=== PATIENT | female | born 1950 | race Caucasian/White ===

== ENCOUNTER 2019-07-01 12:08 | Observation (INO) | payer SELFPAY ==
[2019-07-01] MEDS ORDERED: SODIUM CHLORIDE 1,000 ML IV STA (12:25)
--- NOTE | 2019-07-01 12:52 | PDOC ---
History of Present Illness - General Chief Complaint: Syncope/Near Syncope Stated Complaint: Altered Mental Status Time Seen by Provider: 07/01/19 12:19 History Source: Patient Exam Limitations: No Limitations - History of Present Illness Initial Comments: Michelle Fernando is a 68 yo F w a pmh of multiple vasovagal syncopal events, bladder incontinence, mood disturbances, and constipation who presents to the [facility] ER via EMS bc she had a syncopal episode this morning 1 hour prior to arrival. The patient went to bed last night at 9:30 pm and felt completely normal. She took a sleeping pill and woke up this morning at 10 am, which per her is a totally normal sleep cycle for the patient. The patient states she had to wake up 5 times overnight to urinate which is abnormal for her, usually she only wakes up once or twice. Patient woke up this morning feeling well, walked downstairs to have waffles with her family, and then as she was eating the waffles she suddenly became confused, unresponsive, pale, diaphoretic , vomitted - NBNB, and passed out for around 2 or 3 minutes. EMS arrived within 5 minutes and the patient was starting to wake up. They said her glucose in the field was 135. The and daughter both witnessed the entire event and said the patient was sitting down throughout the entire process and did not experience head or other trauma. As the patient was getting onto the ambulance she woke up and was her normal self. Here in the ER the patient feels she is 100 % and has no complaints. She states she has passed out many other times in her life when she has given blood and in other circumstances. She states today felt very similar to her prior syncopal episodes. Her and daughter who are at bedside states they believe she has decreased her fluid intake for the past 2 days. Patient denies having experienced chest pain, SOB, difficulty breathing, headache, neck pain, numbness, tingling, weakness, dysuria, hesiatancy, fevers, or infections. PCP: In [place] PSH: Hip replacement Social Hx: Drinks a glass of wine with dinner. Denies smoking or other toxic habits Allergies: NKA, NKDA Past History - Past Medical History Allergies/Adverse Reactions: Allergies Allergy/AdvReac Type Severity Reaction Status Date / Time No Known Allergies Allergy Verified 09/02/19 12:16 COPD: No GI Disorders: Yes (over active bladder) - Suicide/Smoking/Psychosocial Hx Smoking History: Former smoker Have you smoked in the past 12 months: No Information on smoking cessation initiated: No Hx Alcohol Use: No Drug/Substance Use Hx: No Review of Systems - Review of Systems Able to Perform ROS?: Yes Comments:: CONSTITUTIONAL: Present: diaphoresis Absent: fever, chills, generalized weakness, malaise, loss of appetite HEENT: Absent: rhinorrhea, nasal congestion, throat pain, throat swelling, difficulty swallowing, mouth swelling, ear pain, eye pain, visual Changes CARDIOVASCULAR: Present: syncope, lightheadedness Absent: chest pain, palpitations, irregular heart rate, peripheral edema RESPIRATORY: Absent: cough, shortness of breath, dyspnea with exertion, orthopnea, wheezing, stridor, hemoptysis GASTROINTESTINAL: Present: Nausea, vomiting Absent: abdominal pain, abdominal distension, diarrhea, constipation, melena, hematochezia GENITOURINARY: Present: Frequency, urgency Absent: dysuria, hesitancy, hematuria, flank pain, genital pain MUSCULOSKELETAL: Absent: myalgia, arthralgia, joint swelling SKIN: Present: Pallor Absent: rash, itching HEMATOLOGIC/IMMUNOLOGIC: Absent: easy bleeding, easy bruising, lymphadenopathy, frequent infections ENDOCRINE: Absent: unexplained weight gain, unexplained weight loss, heat intolerance, cold intolerance NEUROLOGIC: Absent: headache, focal weakness or paresthesias, dizziness, unsteady gait, seizure, mental status changes, bladder or bowel incontinence PSYCHIATRIC: Present: Depression years ago Absent: anxiety, suicidal or homicidal ideation, hallucinations. *Physical Exam - Vital Signs Last Vital Signs Temp Pulse Resp BP Pulse Ox 98.3 F 76 18 135/71 100 07/01/19 12:11 07/01/19 12:11 07/01/19 12:11 07/01/19 12:11 07/01/19 12:11 - Physical Exam Comments: GENERAL: Well developed, well nourished. Awake and alert. No acute distress. HEENT: Normocephalic, atraumatic. PERRLA, EOMI. No conjunctival pallor. Sclera are non- icteric. NECK: Supple. Full ROM. No JVD. No thyromegaly. No lymphadenopathy. CARDIOVASCULAR: Regular rate and rhythm. No murmurs, rubs, or gallops. Distal pulses are 2+ and symmetric. PULMONARY: No evidence of respiratory distress. Lungs clear to auscultation bilaterally. No wheezing, rales or rhonchi. ABDOMINAL: Soft. Non-tender. Non-distended. No rebound or guarding. No organomegaly. Normoactive bowel sounds. MUSCULOSKELETAL Normal range of motion at all joints. No bony deformities or tenderness. No CVA tenderness. EXTREMITIES: No cyanosis. No clubbing. No edema. No calf tenderness. SKIN: Warm and dry. Normal capillary refill. No rashes. No jaundice. NEUROLOGICAL: Alert, awake, appropriate. Cranial nerves 2-12 intact. No deficits to light touch in face, upper extremities and lower extremities. No motor deficits in the in face, upper extremities and lower extremities. Normal speech. Gait is normal without ataxia. PSYCHIATRIC: Cooperative. Good eye contact. Appropriate mood and affect. Heart Score/ECG Review - ECG Intrepretation Rhythm: Regular Rhythm - [place]: Normal - P and PA Prominent R with upright T in V1 (true posterior AL): No Delta Wave(s) Present: No WPW: No - QRS Poor R Wave Progression: No Q Wave Present: No - ST and T Early Repolarization: No Non Specific ST-T Wave changes: Yes Flattened T Waves: Yes Prolonged Q-T Interval: No - ECG Impressions Normal ECG: No Non-specific ST Elevation: Yes Bradycardia: No Torsades nato Pointes: No WPW: No ED Treatment Course - LABORATORY CBC & Chemistry Diagram: 07/01/19 12:36 07/01/19 12:36 - RADIOLOGY Radiology Studies Ordered: Category Date Time Status CHEST X-RAY PORTABLE* [RAD] Stat Radiology 07/01/19 12:26 Ordered Radiograph Interpretation: CXR: Portable chest: Chest pain Single view of the chest reveals clear lungs, normal mediastinum and sharp angles. The soft tissues are intact. Degenerative spine and shoulder changes are noted. There may be calcification in the left shoulder joint. Impression: No acute chest pathology. Degenerative changes. Medical Decision Making - Medical Decision Making Michelle Fernando is a 68 yo F w a pmh of multiple vasovagal syncopal events, bladder incontinence, mood disturbances, and constipation who presents to the [facility] ER via EMS bc she had a syncopal episode this morning 1 hour prior to arrival. The patient went to bed last night at 9:30 pm and felt completely normal. She took a sleeping pill and woke up this morning at 10 am, which per her is a totally normal sleep cycle for the patient. The patient states she had to wake up 5 times overnight to urinate which is abnormal for her, usually she only wakes up once or twice. Patient woke up this morning feeling well, walked downstairs to have waffles with her family, and then as she was eating the waffles she suddenly became confused, unresponsive, pale, diaphoretic , vomitted - NBNB, and passed out for around 2 or 3 minutes. EMS arrived within 5 minutes and the patient was starting to wake up. They said her glucose in the field was 135. The and daughter both witnessed the entire event and said the patient was sitting down throughout the entire process and did not experience head or other trauma. As the patient was getting onto the ambulance she woke up and was her normal self. Here in the ER the patient feels she is 100 % and has no complaints. She states she has passed out many other times in her life when she has given blood and in other circumstances. She states today felt very similar to her prior syncopal episodes. Her and daughter who are at bedside states they believe she has decreased her fluid intake for the past 2 days. Patient denies having experienced chest pain, SOB, difficulty breathing, headache, neck pain, numbness, tingling, weakness, dysuria, hesiatancy, fevers, or infections. Vital Signs Temp Pulse Resp BP Pulse Ox 98.3 F 76 18 135/71 100 07/01/19 12:11 07/01/19 12:11 07/01/19 12:11 07/01/19 12:11 07/01/19 12:11 DDx IBNLT: ACS/AL, Arrhythmia - brugada, long QT, ARVD, HOCM, WPW, Wellens, electrolyte/metabolic disturbance, dehydration, vasovagal event, UTI/pylo Plan: Labs, urine, ekg, cxr, Cards consult, re-assess, probable admission to tele obs EKG: NS rate of 77, narrow complexes, normal axis, no hypertrophy, T wave flattening in aVL, TWI's in V1 and V2, Coved STconvex downgoing ST segment in V1 and also less so in V2 concerning for possible type 1 brugada Labs: Unremarkable. Trop x1 normal. Urine: Normal CXR: No acute chest pathology. Degenerative changes. Cards Consult: Called Dr. Shell's office who says Dr. Petit is construction site manager and will give us a call back. Consult: Dr. Petit agrees with our current management and recommends Tele Obs admission. Re-assessment: Patient feels well and has been asymptomatic since arrival to the ED Disposition: Admission to Tele Obs *DC/Admit/Observation/Transfer Diagnosis at time of Disposition: Syncope and collapse Arrhythmia Qualifiers: Arrhythmia type: unspecified cardiac arrhythmia Qualified Code(s): I49.9 - Cardiac arrhythmia, unspecified - Discharge Dispostion Condition at time of disposition: Stable Decision to Admit order: Yes - Referrals - Patient Instructions - Post Discharge Activity
[2019-07-01 12:57] LABS: BASO % 0.6 % (0-2.0); EOS % 3.1 % (0-4.5); HEMATOCRIT 35.4 % (32.4-45.2); HEMOGLOBIN 11.7 GM/dL (10.7-15.3); LYMPH % 16.9 % (8-40); MCH 30.8 pg (25.7-33.7); MEAN CELL VOLUME 93.3 fl (80-96); MEAN PLT VOLUME 8.4 fl (7.5-11.1); MONO % 14.3 % (3.8-10.2); NEUT % 65.1 % (42.8-82.8); PLATELET COUNT 188 K/MM3 (134-434); RDW 13.4 % (11.6-15.6); WHITE BLOOD COUNT 5.1 K/mm3 (4.0-10.0)
[2019-07-01 13:08] LABS: INR 1.06 (0.83-1.09); PROTHROMBIN TIME (PATIENT) 12.5 SEC (9.7-13.0)
[2019-07-01 13:17] LABS: ALBUMIN 3.3 g/dl (3.4-5.0); BILIRUBIN,TOTAL 0.3 mg/dL (0.2-1); BLOOD UREA NITROGEN 15.5 mg/dL (7-18); CALCIUM 8.6 mg/dL (8.5-10.1); CREATININE 0.7 mg/dL (0.55-1.3); MAGNESIUM 2.3 mg/dL (1.8-2.4); POTASSIUM 4.1 mmol/L (3.5-5.1)
--- NOTE | 2019-07-01 13:29 | PDOC ---
Attending Attestation - Resident Resident Name: Jeremie Mueller - ED Attending Attestation I have performed the following: I have examined & evaluated the patient, The case was reviewed & discussed with the resident, I agree w/resident's findings & plan, Exceptions are as noted - HPI HPI: 07/01/19 13:30 68 F with no significant PMH presents to ED with syncope. Pt states that she was at breakfast when she became pale, confused, diaphoretic, and lost consciousness. Pt was unresponsive for several minutes before waking up and returning to baseline. Pt denies any CP/SOB. Denies palpitations. She states that she has had several similar episodes in the past, but the last episode was about 8 years ago. She was evaluated by a doctor at that time and was told everything was normal. Pt currently has no complaints. Family witnessed the episode and states she was seated the entire time. No fall or head trauma. - Physicial Exam PE: 07/01/19 13:32 "GENERAL: Awake, alert, and fully oriented, in no acute distress. HEAD: No signs of trauma EYES: PERRLA, EOMI, sclera anicteric, conjunctiva clear ENT: Auricles normal inspection, hearing grossly normal, nares patent, oropharynx clear without exudates. Moist mucosa NECK: Nontender, no stepoffs, Normal ROM, supple, no lymphadenopathy, JVD, or masses LUNGS: Breath sounds equal, clear to auscultation bilaterally. No wheezes, and no crackles HEART: Regular rate and rhythm, normal S1 and S2, no murmurs, rubs or gallops ABDOMEN: Soft, nontender, normoactive bowel sounds. No guarding, no rebound. No masses EXTREMITIES: Normal range of motion, no edema. No clubbing or cyanosis. No cords, erythema, or tenderness NEUROLOGICAL: Cranial nerves II through XII intact. 5/5 strength and sensation in all extremities, Normal speech, normal gait, normal cerebellar function SKIN: Warm, Dry, normal turgor, no rashes or lesions noted. - Medical Decision Making 07/01/19 13:32 68 F with syncopal episode. EKG with concerning signs for brugada (cove-like ST elevations in V1, V2). Pt with no chest pain to suggest ACS. - Labs, trop - Cards consult 07/01/19 13:41 Labs wnl Discussed with Dr. Petit pt's abnormal EKG and possibility of Brugada syndrome. Dr. Petit recommends tele obs admission, will evaluate pt.
[2019-07-01 13:54] LABS: PH,URINE 6.5 (5.0-8.0); URINE APPEARANCE CLEAR; URINE BILIRUBIN NEGATIVE (NEGATIVE); URINE COLOR YELLOW; URINE GLUCOSE (UA) NEGATIVE (NEGATIVE); URINE KETONE NEGATIVE (NEGATIVE); URINE LEUK ESTERASE NEGATIVE (NEGATIVE); URINE NITRITE NEGATIVE (NEGATIVE); URINE PROTEIN NEGATIVE (NEGATIVE); URINE UROBILINOGEN 0.2 mg/dL (0.2-1.0)
--- NOTE | 2019-07-01 16:01 | HP ---
CHIEF COMPLAINT: Syncope PCP: Pt is , PCP in [place] HISTORY OF PRESENT ILLNESS: Pt is a 68 y/o F with PMH overactive bladder and constipation and multiple syncople episodes who presents to ED with complaint of fainting spell. Pt was sitting at home and suddenly began to feel dizzy with the room spinning. She does not recall what happened after that, but family was with her (also present at bedside) and confirmed that pt vomited nbnb food contents before passing out for several minutes. EMS was called and pt woke prior to their arrival. Pt has had numerous similar prior episodes (most recently 8 years ago, also on a trip to [place]) and has seen her doctor about it in the past. She was told nothing was wrong. Several other family members have similar episodes of spontaneous syncope including the patient's daughter and grandson who have seen their doctors and been told they are fine. No other complaints. Denies CP, SOB, leg swelling, headache, chills, diarrhea, sick contacts. ER course was notable for: (1) EKG with RBBB and ST elevation in V1 (2) (3) Recent Travel: PAST MEDICAL HISTORY: overactive bladder, chronic constipation, multiple syncople episodes PAST SURGICAL HISTORY: Social History: Smoking:denies Alcohol:denies Drugs: denies Family History: syncope Allergies No Known Allergies Allergy (Verified 07/01/19 12:16) HOME MEDICATIONS: Home Medications Medication Instructions Recorded Lactulose 10 gm PO DAILY 07/01/19 Oxybutynin [Oxytrol For Women] 1 each TD DAILY 07/01/19 REVIEW OF SYSTEMS CONSTITUTIONAL: Absent: fever, chills, diaphoresis, generalized weakness, malaise, loss of appetite, weight change HEENT: Absent: rhinorrhea, nasal congestion, throat pain, throat swelling, difficulty swallowing, mouth swelling, ear pain, eye pain, visual changes CARDIOVASCULAR: syncope, Absent: chest pain, palpitations, irregular heart rate, lightheadedness, peripheral edema RESPIRATORY: Absent: cough, shortness of breath, dyspnea with exertion, orthopnea, wheezing, stridor, hemoptysis GASTROINTESTINAL: Absent: abdominal pain, abdominal distension, nausea, vomiting, diarrhea, constipation, melena, hematochezia GENITOURINARY: Absent: dysuria, frequency, urgency, hesitancy, hematuria, flank pain, genital pain MUSCULOSKELETAL: Absent: myalgia, arthralgia, joint swelling, back pain, neck pain SKIN: Absent: rash, itching, pallor HEMATOLOGIC/IMMUNOLOGIC: Absent: easy bleeding, easy bruising, lymphadenopathy, frequent infections ENDOCRINE: Absent: unexplained weight gain, unexplained weight loss, heat intolerance, cold intolerance NEUROLOGIC: Absent: headache, focal weakness or paresthesias, dizziness, unsteady gait, seizure, mental status changes, bladder or bowel incontinence PSYCHIATRIC: Absent: anxiety, depression, suicidal or homicidal ideation, hallucinations. PHYSICAL EXAMINATION Vital Signs - 24 hr 07/01/19 12:11 Temperature 98.3 F Pulse Rate 76 Respiratory 18 Rate Blood Pressure 135/71 O2 Sat by Pulse 100 Oximetry (%) Gen: AAOx3, NAD HEENT: NCAT, EOMI Neck: supple, no jvd, trachea central Cardio: rrr, normal s1s2, no mrg Pulm: cta b/l Abd: soft, nontender, nondistended Ext: no edema, 2+ pulses Laboratory Results - last 24 hr 07/01/19 07/01/19 07/01/19 12:36 12:36 12:36 WBC 5.1 RBC 3.80 Hgb 11.7 Hct 35.4 MCV 93.3 MCH 30.8 MCHC 33.0 RDW 13.4 Plt Count 188 MPV 8.4 Absolute Neuts (auto) 3.3 Neutrophils % 65.1 Lymphocytes % 16.9 Monocytes % 14.3 H Eosinophils % 3.1 Basophils % 0.6 Nucleated RBC % 0 PT with INR 12.50 INR 1.06 Sodium 140 Potassium 4.1 Chloride 106 Carbon Dioxide 30 Anion Gap 4 L BUN 15.5 Creatinine 0.7 Est GFR (CKD-EPI)AfAm 102.46 Est GFR (CKD-EPI)NonAf 88.40 Random Glucose 113 H Calcium 8.6 Magnesium 2.3 Total Bilirubin 0.3 AST 17 ALT 25 Alkaline Phosphatase 99 Troponin I Total Protein 6.0 L Albumin 3.3 L Urine Color Urine Appearance Urine pH Ur Specific [place] Urine Protein Urine Glucose (UA) Urine Ketones Urine Blood Urine Nitrite Urine Bilirubin Urine Urobilinogen Ur Leukocyte Esterase 07/01/19 07/01/19 12:36 13:14 WBC RBC Hgb Hct MCV MCH MCHC RDW Plt Count MPV Absolute Neuts (auto) Neutrophils % Lymphocytes % Monocytes % Eosinophils % Basophils % Nucleated RBC % PT with INR INR Sodium Potassium Chloride Carbon Dioxide Anion Gap BUN Creatinine Est GFR (CKD-EPI)AfAm Est GFR (CKD-EPI)NonAf Random Glucose Calcium Magnesium Total Bilirubin AST ALT Alkaline Phosphatase Troponin I < 0.02 Total Protein Albumin Urine Color Yellow Urine Appearance Clear Urine pH 6.5 Ur Specific [place] 1.007 L Urine Protein Negative Urine Glucose (UA) Negative Urine Ketones Negative Urine Blood Negative Urine Nitrite Negative Urine Bilirubin Negative Urine Urobilinogen 0.2 Ur Leukocyte Esterase Negative ASSESSMENT/PLAN: This is a pleasant 68 y/o F with PMH significant for overactive bladder, chronic constipation, and multiple syncople episodes who presented to ED with syncope. #Syncope -No suggestion from history of orthostasis -spontaneous, without exertion -EKG with RBBB and ST elev in V1 -EKG and family history raise suspicion for Brugada syndrome -Cardio consult -Tele/Obs #Overactive bladder -oxybutynin #Chronic constipation -Lactulose Visit type - Emergency Visit Emergency Visit: Yes ED Registration Date: 07/01/19 Care time: The patient presented to the Emergency Department on the above date and was hospitalized for further evaluation of their emergent condition. - New Patient This patient is new to me today: Yes Date on this admission: 07/01/19 - Critical Care Critical Care patient: No ATTENDING PHYSICIAN STATEMENT I saw and evaluated the patient. I reviewed the resident's note and discussed the case with the resident. I agree with the resident's findings and plan as documented. SUBJECTIVE: OBJECTIVE: ASSESSMENT AND PLAN:
[2019-07-01] MEDS ORDERED: HEPARIN NA (PORCINE) 5,000 UNITS/ML 1ML VIAL ONE ×2 (16:04→22:16)
[2019-07-01] MEDS: HEPARIN NA (PORCINE) 5,000 UNITS/ML 1ML VIAL SQ SCH ×2 (16:07→22:19)
--- NOTE | 2019-07-01 16:23 | PN ---
Teaching Attending Note Name of Resident: Reuben Daugherty ATTENDING PHYSICIAN STATEMENT I saw and evaluated the patient. I reviewed the resident's note and discussed the case with the resident. I agree with the resident's findings and plan as documented with exceptions below. SUBJECTIVE: 68 yof with PMhx of overactive bladder, visiting from [place], was sitting when had sudden onset of dizziness, spinning sensation. Next thing she remembers was being with EMS. Per family who witnessed the event, patient vomited once, followed by LOC while sitting. No chest pain, palpitations, dyspnea, vision or speech changes, urinary or bowel incontinence, fall, head trauma, post episode confusion were noted. Similar episode 8 years ago and prior to the same as well. Denies any history suggestive of poor oral intake, prolonged standing positional change, diarrhea, vomiting. Has had Holter monitor for 24 hours in the past with no concerns. Also reports multiple family members with similar episodes with reportedly unremarkable work up. 12 point ROS done, neg except above. OBJECTIVE: Vital Signs Period Temp Pulse Resp BP Sys/Santos Pulse Ox Last 24 Hr 98.3 F 76 18 135/71 100 Intake & Output 06/28/19 06/29/19 06/30/19 07/01/19 23:59 23:59 23:59 23:59 Weight 140 lb GENERAL: Awake, alert, and fully oriented, in no acute distress. HEAD: Normal with no signs of trauma. EYES: Pupils equal, round and reactive to light, extraocular movements intact, sclera anicteric, conjunctiva clear. No lid lag. EARS, NOSE, THROAT: Ears normal, nares patent, oropharynx clear without exudates. Moist mucous membranes. NECK: Normal range of motion, supple without lymphadenopathy, JVD, or masses. No carotid bruit appreciated LUNGS: Breath sounds equal, clear to auscultation bilaterally. No wheezes, and no crackles. No accessory muscle use. HEART: Regular rate and rhythm, normal S1 and S2 without murmur, rub or gallop. ABDOMEN: Soft, nontender, not distended, normoactive bowel sounds, no guarding, no rebound, no masses. No hepatomegaly or splenomegaly. MUSCULOSKELETAL: Normal range of motion at all joints. No bony deformities or tenderness. No CVA tenderness. UPPER EXTREMITIES: 2+ pulses, warm, well-perfused. No cyanosis. No clubbing. No peripheral edema. LOWER EXTREMITIES: 2+ pulses, warm, well-perfused. No calf tenderness. No peripheral edema. NEUROLOGICAL: AAOx3, power 5/5, sensation intact to light touch, facial symmetry, EOMI, PERRL, Cranial nerves II-XII intact. Normal speech. Gait not observed PSYCHIATRIC: Cooperative. Good eye contact. Appropriate mood and affect. SKIN: Warm, dry, normal turgor, no rashes or lesions noted, normal capillary refill. Home Medications Medication Instructions Recorded Lactulose 10 gm PO DAILY 07/01/19 Oxybutynin [Oxytrol For Women] 1 each TD DAILY 07/01/19 Active Medications Heparin Sodium (Porcine) (Heparin -) 5,000 unit SQ TID DELTA Last Admin: 07/01/19 16:07 Dose: 5,000 unit Lactulose (Cephulac (Oral Use)) 10 gm PO DAILY [facility] Non-Formulary Medication (Oxybutynin [Oxytrol For Women]) 1 each TD DAILY [facility] Laboratory Results - last 24 hr 07/01/19 07/01/19 07/01/19 12:36 12:36 12:36 WBC 5.1 RBC 3.80 Hgb 11.7 Hct 35.4 MCV 93.3 MCH 30.8 MCHC 33.0 RDW 13.4 Plt Count 188 MPV 8.4 Absolute Neuts (auto) 3.3 Neutrophils % 65.1 Lymphocytes % 16.9 Monocytes % 14.3 H Eosinophils % 3.1 Basophils % 0.6 Nucleated RBC % 0 PT with INR 12.50 INR 1.06 Sodium 140 Potassium 4.1 Chloride 106 Carbon Dioxide 30 Anion Gap 4 L BUN 15.5 Creatinine 0.7 Est GFR (CKD-EPI)AfAm 102.46 Est GFR (CKD-EPI)NonAf 88.40 Random Glucose 113 H Calcium 8.6 Magnesium 2.3 Total Bilirubin 0.3 AST 17 ALT 25 Alkaline Phosphatase 99 Troponin I Total Protein 6.0 L Albumin 3.3 L Urine Color Urine Appearance Urine pH Ur Specific [place] Urine Protein Urine Glucose (UA) Urine Ketones Urine Blood Urine Nitrite Urine Bilirubin Urine Urobilinogen Ur Leukocyte Esterase 07/01/19 07/01/19 12:36 13:14 WBC RBC Hgb Hct MCV MCH MCHC RDW Plt Count MPV Absolute Neuts (auto) Neutrophils % Lymphocytes % Monocytes % Eosinophils % Basophils % Nucleated RBC % PT with INR INR Sodium Potassium Chloride Carbon Dioxide Anion Gap BUN Creatinine Est GFR (CKD-EPI)AfAm Est GFR (CKD-EPI)NonAf Random Glucose Calcium Magnesium Total Bilirubin AST ALT Alkaline Phosphatase Troponin I < 0.02 Total Protein Albumin Urine Color Yellow Urine Appearance Clear Urine pH 6.5 Ur Specific [place] 1.007 L Urine Protein Negative Urine Glucose (UA) Negative Urine Ketones Negative Urine Blood Negative Urine Nitrite Negative Urine Bilirubin Negative Urine Urobilinogen 0.2 Ur Leukocyte Esterase Negative CXR results and images reviewed, no acute process EKG NSR, J point elevation V1-v2 ASSESSMENT AND PLAN: 68 yof with PMhx of recurrent episodes of syncope, comes with syncope, -Syncope, r/o Brugada syndrome, arrhythmia, description not suggestive of vasovagal event/hypovolumia or neurology etiology -Overactive bladder Plan: Telemetry Cardiology input 2D echo/Carotid duplex. [id number] Dispo pending clinical course and need for additional work up. Discussed with patient in detail, all questions answered. total admit time 55 min.
[2019-07-02] MEDS ORDERED: MELATONIN 1 MG TABLET PO ONE (03:07)
[2019-07-02 03:15] VITALS: BMI 26.0
[2019-07-02 07:01] LABS: HEMATOCRIT 35.8 % (32.4-45.2); MCH 30.8 pg (25.7-33.7); MCHC 33.4 g/dl (32.0-36.0); MEAN CELL VOLUME 92.3 fl (80-96); MEAN PLT VOLUME 8.9 fl (7.5-11.1); PLATELET COUNT 175 K/MM3 (134-434); RBC 3.88 M/mm3 (3.60-5.2); RDW 13.3 % (11.6-15.6); WHITE BLOOD COUNT 5.3 K/mm3 (4.0-10.0)
[2019-07-02] MEDS: HEPARIN NA (PORCINE) 5,000 UNITS/ML 1ML VIAL SQ SCH ×3 (07:13→21:46)
[2019-07-02 07:32] LABS: ANION GAP 5 MMOL/L (8-16); BLOOD UREA NITROGEN 12.2 mg/dL (7-18); CALCIUM 8.6 mg/dL (8.5-10.1); CHLORIDE 108 mmol/L (98-107); CO2 30 mmol/L (21-32); CREATININE 0.6 mg/dL (0.55-1.3); GLUCOSE,RANDOM 86 mg/dL (74-106); MAGNESIUM 2.1 mg/dL (1.8-2.4); PHOSPHOROUS 3.1 mg/dL (2.5-4.9); POTASSIUM 3.5 mmol/L (3.5-5.1); SODIUM 143 mmol/L (136-145)
[2019-07-02] MEDS ORDERED: OXYBUTYNIN TD SCH (10:00)
--- NOTE | 2019-07-02 11:41 | PN ---
Teaching Attending Note Name of Resident: Reuben Daugherty ATTENDING PHYSICIAN STATEMENT I saw and evaluated the patient. I reviewed the resident's note and discussed the case with the resident. I agree with the resident's findings and plan as documented with exceptions below. SUBJECTIVE: Patient seen and examined. Had an episode of chest pressure earlier today, now resolved. OBJECTIVE: Vital Signs Period Temp Pulse Resp BP Sys/Santos Pulse Ox Last 24 Hr 97.8 F-98.4 F 76-90 17-20 135-170/65-77 96-100 Intake & Output 06/29/19 06/30/19 07/01/19 07/02/19 23:59 23:59 23:59 23:59 Intake Total 120 Balance 120 Weight 140 lb 147 lb 3.2 oz General: sitting in bed in no acute distress Neck; Soft, supple, no JVD Chest: CTAB, no rales or wheezing Abdomen:soft, NT, ND extremities: no edema Home Medications Medication Instructions Recorded Lactulose 10 gm PO DAILY 07/01/19 Oxybutynin [Oxytrol For Women] 1 each TD DAILY 07/01/19 Active Medications Heparin Sodium (Porcine) (Heparin -) 5,000 unit SQ TID DELTA Last Admin: 07/02/19 07:13 Dose: 5,000 unit Lactulose (Cephulac (Oral Use)) 10 gm PO DAILY [facility] Non-Formulary Medication (Oxybutynin [Oxytrol For Women]) 1 each TD DAILY [facility] Laboratory Results - last 24 hr 07/01/19 07/01/19 07/01/19 12:36 12:36 12:36 WBC 5.1 RBC 3.80 Hgb 11.7 Hct 35.4 MCV 93.3 MCH 30.8 MCHC 33.0 RDW 13.4 Plt Count 188 MPV 8.4 Absolute Neuts (auto) 3.3 Neutrophils % 65.1 Lymphocytes % 16.9 Monocytes % 14.3 H Eosinophils % 3.1 Basophils % 0.6 Nucleated RBC % 0 PT with INR 12.50 INR 1.06 Sodium 140 Potassium 4.1 Chloride 106 Carbon Dioxide 30 Anion Gap 4 L BUN 15.5 Creatinine 0.7 Est GFR (CKD-EPI)AfAm 102.46 Est GFR (CKD-EPI)NonAf 88.40 Random Glucose 113 H Calcium 8.6 Phosphorus Magnesium 2.3 Total Bilirubin 0.3 AST 17 ALT 25 Alkaline Phosphatase 99 Troponin I Total Protein 6.0 L Albumin 3.3 L TSH Free T4 Urine Color Urine Appearance Urine pH Ur Specific [place] Urine Protein Urine Glucose (UA) Urine Ketones Urine Blood Urine Nitrite Urine Bilirubin Urine Urobilinogen Ur Leukocyte Esterase 07/01/19 07/01/19 07/02/19 12:36 13:14 05:15 WBC 5.3 RBC 3.88 Hgb 12.0 Hct 35.8 MCV 92.3 MCH 30.8 MCHC 33.4 RDW 13.3 Plt Count 175 MPV 8.9 Absolute Neuts (auto) Neutrophils % Lymphocytes % Monocytes % Eosinophils % Basophils % Nucleated RBC % PT with INR INR Sodium Potassium Chloride Carbon Dioxide Anion Gap BUN Creatinine Est GFR (CKD-EPI)AfAm Est GFR (CKD-EPI)NonAf Random Glucose Calcium Phosphorus Magnesium Total Bilirubin AST ALT Alkaline Phosphatase Troponin I < 0.02 Total Protein Albumin TSH Free T4 Urine Color Yellow Urine Appearance Clear Urine pH 6.5 Ur Specific [place] 1.007 L Urine Protein Negative Urine Glucose (UA) Negative Urine Ketones Negative Urine Blood Negative Urine Nitrite Negative Urine Bilirubin Negative Urine Urobilinogen 0.2 Ur Leukocyte Esterase Negative 07/02/19 05:15 WBC RBC Hgb Hct MCV MCH MCHC RDW Plt Count MPV Absolute Neuts (auto) Neutrophils % Lymphocytes % Monocytes % Eosinophils % Basophils % Nucleated RBC % PT with INR INR Sodium 143 Potassium 3.5 Chloride 108 H Carbon Dioxide 30 Anion Gap 5 L BUN 12.2 Creatinine 0.6 Est GFR (CKD-EPI)AfAm 107.79 Est GFR (CKD-EPI)NonAf 93.00 Random Glucose 86 Calcium 8.6 Phosphorus 3.1 Magnesium 2.1 Total Bilirubin AST ALT Alkaline Phosphatase Troponin I < 0.02 Total Protein Albumin TSH 5.89 H Free T4 0.93 Urine Color Urine Appearance Urine pH Ur Specific [place] Urine Protein Urine Glucose (UA) Urine Ketones Urine Blood Urine Nitrite Urine Bilirubin Urine Urobilinogen Ur Leukocyte Esterase Microbiology 07/01/19 13:14 Urine - Urine Clean Catch Urine Culture - Final NO GROWTH OBTAINED telemetry: no events carotid duplex results noted ASSESSMENT AND PLAN: 68 yof with PMhx of recurrent episodes of syncope, comes with syncope, -Syncope, r/o Brugada syndrome, arrhythmia, description not suggestive of vasovagal event/hypovolumia or neurology etiology -Chest pain, ?from elevated BP, r/o underlying CAD -large plaque at left common carotid bifurcation/origin of external carotid artery -?subclinical hypothyroidism -Overactive bladder Plan: telemetry with no events. Tn neg x 2 Cardiology input. Follow up 2d Echo. Episode of chest pressure this AM (no events on tele) and h/o intermittent chest pain. Could be from elevated BP. Check stress test. Suspect undiagnosed HTN. Anti-hypertensive choice pending above work up. Carotid duplex noted, check CTA head/neck, vascular surgery input. TSH noted, Recommend repeat thyroid function in 1-2 weeks outpatient. DVTPPx Dispo pending above work up and clinical course. Dc in 24 hours if w/u neg and no new concerns Discussed with patient in detail, all questions answered.
--- NOTE | 2019-07-02 12:46 | EKG ---
Test Reason : Blood Pressure : / mmHG Vent. Rate : 077 BPM Atrial Rate : 077 BPM P-R Int : 152 ms QRS Dur : 086 ms QT Int : 394 ms P-R-T Axes : 057 057 071 degrees QTc Int : 445 ms NORMAL SINUS RHYTHM NONSPECIFIC ST ABNORMALITY ABNORMAL ECG NO PREVIOUS ECGS AVAILABLE Confirmed by Isaiah Chu MD ([id number]) on 07/02/2019 12:46:34 PM Referred By: Confirmed By:Isaiah Chu MD
--- NOTE | 2019-07-02 14:03 | ECHO ---
Name: RUTH LEMOS Exam:Adult Echocardiogram Study Date: 07/02/2019 10:27 AM Age: 68 yrs Reason For Study: assess lv function Height: 63 in Weight: 140 lb BSA: 1.7 m2 MMode/2D Measurements & Calculations IVSd: 0.90 cm Ao root diam: 2.3 cm LVIDd: 4.0 cm LA dimension: 2.6 cm LVIDs: 2.8 cm LVPWd: 0.91 cm LVPWs: 1.4 cm EDV(Teich): 68.4 ml ESV(Teich): 28.8 ml LVOT diam: 1.9 cm RV S Saman: 13.7 cm/sec Doppler Measurements & Calculations MV E max saman: 70.3 cm/sec Ao V2 max: 129.4 cm/sec MV A max saman: 101.4 cm/sec Ao max P.7 mmHg MV E/A: 0.69 Ao V2 mean: 94.5 cm/sec MV dec time: 0.23 sec Ao mean P.9 mmHg Ao V2 VTI: 27.9 cm MARCI(I,D): 2.3 cm2 MARCI(V,D): 2.4 cm2 LV V1 max P.0 mmHg SV(LVOT): 64.6 ml LV V1 mean P.7 mmHg LV V1 max: 112.0 cm/sec LV V1 mean: 78.7 cm/sec LV V1 VTI: 23.3 cm TR max saman: 264.7 cm/sec PA V2 max: 131.9 cm/sec TR max P.0 mmHg PA max P.7 mmHg Med Peak E' Saman: 6.6 cm/sec Med E/e': 10.6 Lat Peak E' Saman: 7.7 cm/sec Lat E/e': 9.1 Procedure A two-dimensional transthoracic echocardiogram with color flow and Doppler was performed. The patient was in normal sinus rhythm during the exam. Left Ventricle The left ventricular size, thickness and function are normal. Ejection Fraction = 60%. Grade I diasto lic dysfunction, (abnormal relaxation pattern). The left ventricular wall motion is normal. Right Ventricle The right ventricle is normal in size and function. Atria Normal left and right atrial size and function. Mitral Valve The mitral valve is grossly normal. There is trace mitral regurgitation. Tricuspid Valve The tricuspid valve is not well visualized, but is grossly normal. There is mild tricuspid regurgitat ion. Right ventricular systolic pressure is normal. Aortic Valve The aortic valve is trileaflet. No hemodynamically significant valvular aortic stenosis. Pulmonic Valve Trace pulmonic valvular regurgitation. Great Vessels The aortic root is normal size. Pericardium/Pleura There is no pericardial effusion. Interpretation Summary The left ventricular size, thickness and function are normal Normal left and right atrial size and function. There is trace mitral regurgitation. There is mild tricuspid regurgitation. No hemodynamically significant valvular aortic stenosis. Right ventricular systolic pressure is normal. Grade I diastolic dysfunction, (abnormal relaxation pattern). MD Geovani Escobedo 07/02/2019 02:02 PM
--- NOTE | 2019-07-02 14:31 | CONSULT ---
- Consultation REQUESTING PROVIDER: CONSULT REQUEST: We have been asked to surgically evaluate this patient for carotid plaque. PCP:Jay Jay Ding MD HISTORY OF PRESENT ILLNESS: Michelle Fernando is a 68 yo F w a pmh of multiple vasovagal syncopal events, bladder incontinence, mood disturbances, and constipation who presents to the [facility] ER via EMS bc she had a syncopal episode yesterday. Patient states she initially woke up feeling well but soon after breakfast she began to feel like she was going to pass out. She suddenly became confused, unresponsive, pale, diaphoretic, vomited once-and passed out. EMS arrived within 5 minutes and the patient was starting to wake up. The and daughter both witnessed the entire event and said the patient was sitting down throughout the entire process and did not experience head or other trauma. She arrived in the ED with no complaints. She states she has passed out many other times in her life when she has given blood and in other circumstances. She states today felt very similar to her prior syncopal episodes. Her and daughter who are at bedside states they believe she has decreased her fluid intake for the past 2 days. Patient denies having experienced chest pain, SOB, difficulty breathing, headache, neck pain, numbness, tingling, weakness, dysuria, hesiatancy, fevers, or infections. PCP: In [place] Social Hx: Drinks a glass of wine with dinner. Denies smoking or other toxic habits Allergies: NKA, NKDA PMHx:, mood disorder overactive bladder PSHx: Hip replacement Home Medications Medication Instructions Recorded Lactulose 10 gm PO DAILY 07/01/19 Oxybutynin [Oxytrol For Women] 1 each TD DAILY 07/01/19 Allergies Allergy/AdvReac Type Severity Reaction Status Date / Time No Known Allergies Allergy Verified 07/01/19 12:16 CONSTITUTIONAL: Present: + diaphoresis (associated with episode) Absent: fever, chills, generalized weakness, malaise, loss of appetite HEENT: Absent: rhinorrhea, nasal congestion, throat pain, throat swelling, visual Changes CARDIOVASCULAR: Present: syncope, lightheadedness Absent: chest pain, palpitations, peripheral edema RESPIRATORY: Absent: cough, shortness of breath, dyspnea with exertion, GASTROINTESTINAL: Present: Nausea, vomiting Absent: abdominal pain, abdominal distension, diarrhea, + constipation GENITOURINARY: Present: + Frequency, urgency Absent: dysuria, hesitancy, hematuria, MUSCULOSKELETAL: Absent: myalgia, arthralgia, joint swelling SKIN: Present: Pallor Absent: rash, itching HEMATOLOGIC/IMMUNOLOGIC: Absent: easy bleeding, easy bruising, lymphadenopathy, frequent infections ENDOCRINE: Absent: unexplained weight gain, unexplained weight loss, heat intolerance, cold intolerance NEUROLOGIC: Absent: headache, focal weakness or paresthesias, dizziness, unsteady gait, seizure, mental status changes, bladder or bowel incontinence PSYCHIATRIC: Present: +Depression years ago Absent: anxiety, suicidal or homicidal ideation, hallucinations. *Physical Exam GENERAL: Well developed, well nourished. Awake and alert. No acute distress. HEENT: Normocephalic, atraumatic. Sclera are non-icteric. NECK: Supple. Full ROM. No JVD. No thyromegaly. No lymphadenopathy, no bruit heard over b/l carotids. PULMONARY: No evidence of respiratory distress. Lungs clear to auscultation bilaterally. No wheezing, rales or rhonchi. MUSCULOSKELETAL moving all extremities without limitation EXTREMITIES: No cyanosis. No clubbing. No edema. No calf tenderness. SKIN: Warm and dry. Normal capillary refill. No rashes. No jaundice. NEUROLOGICAL: Alert, awake, appropriate. Cranial nerves 2-12 intact. No deficits to light touch in face, upper extremities and lower extremities. No motor deficits in the in face, upper extremities and lower extremities. Normal speech. PSYCHIATRIC: Cooperative. Good eye contact. Appropriate mood and affect. Vital Signs Temperature 98 F 07/02/19 09:00 Pulse Rate 80 07/02/19 09:00 Respiratory Rate 18 07/02/19 09:35 Blood Pressure 146/75 07/02/19 09:00 O2 Sat by Pulse Oximetry (%) 98 07/02/19 09:35 Lab Results WBC 5.3 K/mm3 (4.0-10.0) 07/02/19 05:15 RBC 3.88 M/mm3 (3.60-5.2) 07/02/19 05:15 Hgb 12.0 GM/dL (10.7-15.3) 07/02/19 05:15 Hct 35.8 % (32.4-45.2) 07/02/19 05:15 MCV 92.3 fl (80-96) 07/02/19 05:15 MCHC 33.4 g/dl (32.0-36.0) 07/02/19 05:15 RDW 13.3 % (11.6-15.6) 07/02/19 05:15 Plt Count 175 K/MM3 (134-434) 07/02/19 05:15 Sodium 143 mmol/L (136-145) 07/02/19 05:15 Potassium 3.5 mmol/L (3.5-5.1) 07/02/19 05:15 Chloride 108 mmol/L (98-107) H 07/02/19 05:15 Carbon Dioxide 30 mmol/L (21-32) 07/02/19 05:15 Anion Gap 5 MMOL/L (8-16) L 07/02/19 05:15 BUN 12.2 mg/dL (7-18) 07/02/19 05:15 Creatinine 0.6 mg/dL (0.55-1.3) 07/02/19 05:15 Random Glucose 86 mg/dL (74-106) 07/02/19 05:15 Calcium 8.6 mg/dL (8.5-10.1) 07/02/19 05:15 INR 1.06 (0.83-1.09) 07/01/19 12:36 Neck ultrasound minimal intimal thickening of right common carotid bifurcation without evidence of hemodynamically significant stenosis. Larger plaque at left common carotid bifurcation/origin of external carotid @ 8x5.5 without evidence of hemodynamically significant stenosis. Problem List - Problems (1) Syncope and collapse Assessment/Plan: 68 yo with incidental finding of neck plaque without evidence of hemodynamically significant stenosis, in patient with known episodes of vasovagual incidents. No evidence for vascular intervention. 1) continued medical work up for syncope. 2) OOB as tolerated with assist 3) d/c planning 4) re-consult vascular surgery PRN Evaluation and plan discussed with Dr Ramos Code(s): R55 - SYNCOPE AND COLLAPSE
--- NOTE | 2019-07-02 14:34 | PN ---
Physical Exam: SUBJECTIVE: Patient seen and examined at bedside. No acute events overnight. Tele reviewed. OBJECTIVE: Vital Signs Period Temp Pulse Resp BP Sys/Santos Pulse Ox Last 24 Hr 97.8 F-98.4 F 79-90 17-20 140-170/65-77 96-99 Gen: AAOx3, NAD HEENT: NCAT, EOMI Neck: supple, no jvd, trachea central Cardio: rrr, normal s1s2, no mrg Pulm: cta b/l Abd: soft, nontender, nondistended Ext: no edema, 2+ pulses Laboratory Results - last 24 hr 07/02/19 07/02/19 05:15 05:15 WBC 5.3 RBC 3.88 Hgb 12.0 Hct 35.8 MCV 92.3 MCH 30.8 MCHC 33.4 RDW 13.3 Plt Count 175 MPV 8.9 Sodium 143 Potassium 3.5 Chloride 108 H Carbon Dioxide 30 Anion Gap 5 L BUN 12.2 Creatinine 0.6 Est GFR (CKD-EPI)AfAm 107.79 Est GFR (CKD-EPI)NonAf 93.00 Random Glucose 86 Calcium 8.6 Phosphorus 3.1 Magnesium 2.1 Troponin I < 0.02 TSH 5.89 H Free T4 0.93 Active Medications Generic Name Dose Route Start Last Admin Trade Name Freq PRN Reason Stop Dose Admin Heparin Sodium (Porcine) 5,000 unit 07/01/19 15:45 07/02/19 07:13 Heparin - SQ 5,000 unit TID DELTA Administration Lactulose 10 gm 07/02/19 10:00 Cephulac (Oral Use) PO DAILY [facility] Non-Formulary Medication 1 each 07/02/19 10:00 Oxybutynin [Oxytrol For Women] TD DAILY [facility] ASSESSMENT/PLAN: This is a pleasant 68 y/o F with PMH significant for overactive bladder, chronic constipation, and multiple syncople episodes who presented to ED with syncope. #Syncope -No suggestion from history of orthostasis -spontaneous, without exertion -EKG with RBBB and ST elev in V1 -EKG and family history raise suspicion for Brugada syndrome -Echo unremarkable: normal LV function, grade I diastolic dysfunction -Cardio consult -Tele/Obs #Overactive bladder -oxybutynin #Chronic constipation -Lactulose Visit type - Emergency Visit Emergency Visit: No - New Patient This patient is new to me today: No - Critical Care Critical Care patient: No ATTENDING PHYSICIAN STATEMENT I saw and evaluated the patient. I reviewed the resident's note and discussed the case with the resident. I agree with the resident's findings and plan as documented. SUBJECTIVE: OBJECTIVE: ASSESSMENT AND PLAN:
--- NOTE | 2019-07-02 14:51 | PN ---
Progress Note (short form) - Note Progress Note: Vascular Surgery Carotid doppler study reviewed. No elevated velocities. Just plaque in arteries that are not flow limiting. Normal study. CTA of neck done as well. will await official read. Hernandez Ramos DO
[2019-07-02] MEDS: LACTULOSE 20 GM/30 ML UDC (FOR ORAL USE ONLY) PO SCH (15:47)
--- NOTE | 2019-07-02 17:16 | CON.CARD ---
Consult Consult Specialty:: Cardiology Referred by:: Hospitalist Medicine Reason for Consultation:: Syncope - History of Present Illness Chief Complaint: Syncope History of Present Illness: 68 yof with PMhx of overactive bladder, visiting from [place], presented for syncopal episode after eating preceded by typical prodromal sxs of near syncope , flushing, diaphoresis. nausea followed by emesis, noted to be bradycardic, she denies chest pain, palpitations, dyspnea. ECG shows coved ST elevations V1. Telemetry shows no events and she remains asymptomatic since admission. - History Source History Provided By: Patient Limitations to Obtaining History: No Limitations - Alcohol/Substance Use Hx Alcohol Use: No - Smoking History Smoking history: Former smoker Have you smoked in the past 12 months: No Home Medications - Allergies Allergies/Adverse Reactions: Allergies Allergy/AdvReac Type Severity Reaction Status Date / Time No Known Allergies Allergy Verified 07/01/19 12:16 - Home Medications Home Medications: Ambulatory Orders Lactulose 10 gm PO DAILY 07/01/19 Oxybutynin [Oxytrol For Women] 1 each TD DAILY 07/01/19 Review of Systems - Review of Systems Constitutional: reports: Diaphoresis Gastrointestinal: reports: Nausea, Vomiting Neurological: reports: Dizziness, Syncope Vital Signs: Vital Signs Temperature 97.8 F 07/02/19 14:00 Pulse Rate 73 07/02/19 14:00 Respiratory Rate 18 07/02/19 09:35 Blood Pressure 148/84 07/02/19 14:00 O2 Sat by Pulse Oximetry (%) 98 07/02/19 09:35 Constitutional: Yes: No Distress, Calm Neck: Yes: Supple Respiratory: Yes: Regular, CTA Bilaterally Gastrointestinal: Yes: Normal Bowel Sounds, Soft Cardiovascular: Yes: Regular Rate and Rhythm JVD: No Carotid Bruit: No Heart Sounds: Yes: S1, S2 Edema: No - Other Data Labs, Other Data: CBC, BMP 07/02/19 05:15 07/02/19 05:15 INR, PTT INR 1.06 (0.83-1.09) 07/01/19 12:36 Troponin, BNP 07/02/19 05:15 Troponin I < 0.02 Troponin, BNP 07/02/19 05:15 Troponin I < 0.02 NSR @ [address] changes does not meet Brugada syndrome criteria involving leads V1-V3 Echo: Report Reviewed Imaging - Results Chest X-ray: Report Reviewed Problem List - Problems (1) Chest pain Code(s): R07.9 - CHEST PAIN, UNSPECIFIED Qualifiers: Chest pain type: unspecified Qualified Code(s): R07.9 - Chest pain, unspecified (2) Syncope and collapse Code(s): R55 - SYNCOPE AND COLLAPSE Assessment/Plan 07/02/2019 ETT Myoview: [address] depressions inferolateral leads resolving with recovery, no ischemia, LVEF 58% 07/02/2019 Echo: Normal LV and RV size and fxn, mild TR, tr MR, grade I diastolic dysfunction 07/02/2019 Neck CTA: Bilateral nonobstructive plaque common carotid 1. Syncope with typical prodromal symptoms c/w vasovagal etiology 2. Nonobstructive carotid plaque 3. Chest pain ruled out for MS and ischemia P:1. Counselled on abortive maneuvers once prodromal sxs have been experienced, instructions to remain well-hydrated 2. Studies reviewed with patient and family 3. ECG pattern not consistent with Brugada syndrome 4. Patient may be d/barb from CV-standpoint, thank you for consultative opportunity
[2019-07-02] MEDS ORDERED: MELATONIN 5 MG TABLETS PO ONE (21:30)
[2019-07-03] MEDS: HEPARIN NA (PORCINE) 5,000 UNITS/ML 1ML VIAL SQ SCH (06:53)
[2019-07-03 08:06] LABS: HEMATOCRIT 37.5 % (32.4-45.2); HEMOGLOBIN 12.4 GM/dL (10.7-15.3); MCH 30.7 pg (25.7-33.7); MCHC 33.2 g/dl (32.0-36.0); MEAN CELL VOLUME 92.7 fl (80-96); MEAN PLT VOLUME 8.9 fl (7.5-11.1); PLATELET COUNT 182 K/MM3 (134-434); RBC 4.05 M/mm3 (3.60-5.2); RDW 13.6 % (11.6-15.6); WHITE BLOOD COUNT 5.4 K/mm3 (4.0-10.0)
[2019-07-03 08:25] VITALS: PULSE 75; TEMP 98
[2019-07-03 08:26] LABS: BLOOD UREA NITROGEN 10.3 mg/dL (7-18); CALCIUM 8.9 mg/dL (8.5-10.1); CREATININE 0.5 mg/dL (0.55-1.3); POTASSIUM 3.6 mmol/L (3.5-5.1)
--- NOTE | 2019-07-03 08:32 | PN ---
Teaching Attending Note Name of Resident: Reuben Daugherty ATTENDING PHYSICIAN STATEMENT I saw and evaluated the patient. I reviewed the resident's note and discussed the case with the resident. I agree with the resident's findings and plan as documented. Seen and examined; please see resident note for additional historical information. No complaints overnight, seen by CV who cleared for DC. CTA reviewed; nonobstructing plaques. Orthostatics pending prior to DC. Echo with Grade I diastolic dysfunction with trace MR and mild TR. No issues on telemetry. Reviewed admitting EKG. 10 sys ROS done and negative aside HPI VS, labs, imaging reviewed NAD, AAO, resting in med NC AT EOMI PERRLA RRR s1/2; very slight systolic murmur Lungs CTAB, w/ sym exp NT ND +BS CN2-12 wnl, no fnd Normal mood, appropriate behavior ASSESSMENT AND PLAN: Patient presents with syncope; no Brugada syndrome or pattern noted but concern of coved findings with ST-seg in V1 noted. Did have some sinus bradycardia with a positive chronotropic response that is not noted this AM on exam or overnight on vitals. Cardiology felt that this was likely vasovagal and counseled on abortive maneuvers; agreed with dx not being brugada. Of note is that patient did rule out ACS. Checking [facility] prior to DC (will update if negative; discussed with resident). She has remote followup given her living situation. She has remained asymptomatic. Cautioned not to drive and regarding warning signs and when to return to the hospital. Ensured that she did have ability to followup with her own physicians. Cardiology cleared for discharge. She is able to walk and complete ADLs/IADLs without difficulty and demonstrates complete decision-making capacity. She will be discharged home with instructions for close followup with primary and specialty services and did verbalize understanding. Please refer to resident note for reconciled DC medication list 45 mins to complete DCS
[2019-07-03 08:33] VITALS: BP 161/80
--- NOTE | 2019-07-03 09:26 | PN ---
Progress Note (short form) - Note Progress Note: CTA read finalized no hemodynamically significant stenosis in b/l carotids. Pt should f/u with Dr Ramos in 6 months for surveillance duplex. Above d/w attending Dr Ramos
--- NOTE | 2019-07-03 09:41 | PN ---
Progress Note, Physician History of Present Illness: Denies recurrent near or true syncope. - Current Medication List Current Medications: Active Medications Heparin Sodium (Porcine) (Heparin -) 5,000 unit SQ TID [facility] Last Admin: 07/03/19 06:53 Dose: 5,000 unit Lactulose (Cephulac (Oral Use)) 10 gm PO DAILY [facility] Last Admin: 07/02/19 15:47 Dose: 10 gm Non-Formulary Medication (Oxybutynin [Oxytrol For Women]) 1 each TD DAILY [facility] - Objective Vital Signs: Vital Signs Temperature 98.0 F 07/03/19 08:23 Pulse Rate 75 07/03/19 08:33 Respiratory Rate 18 07/03/19 08:25 Blood Pressure 161/80 07/03/19 08:33 O2 Sat by Pulse Oximetry (%) 98 07/03/19 08:25 Constitutional: Yes: No Distress, Calm, Thin Neck: Yes: Supple Cardiovascular: Yes: Regular Rate and Rhythm Respiratory: Yes: Regular, CTA Bilaterally Gastrointestinal: Yes: Normal Bowel Sounds, Soft Edema: No Labs: CBC, BMP 07/03/19 06:00 07/03/19 06:00 INR, PTT INR 1.06 (0.83-1.09) 07/01/19 12:36 Problem List - Problems (1) Chest pain Code(s): R07.9 - CHEST PAIN, UNSPECIFIED Qualifiers: Chest pain type: unspecified Qualified Code(s): R07.9 - Chest pain, unspecified (2) Syncope and collapse Code(s): R55 - SYNCOPE AND COLLAPSE Assessment/Plan 07/02/2019 ETT Myoview: [address] depressions inferolateral leads resolving with recovery, no ischemia, LVEF 58% 07/02/2019 Echo: Normal LV and RV size and fxn, mild TR, tr MR, grade I diastolic dysfunction 07/02/2019 Neck CTA: Bilateral nonobstructive plaque common carotid 1. Syncope with typical prodromal symptoms c/w vasovagal etiology 2. Nonobstructive carotid plaque 3. Chest pain ruled out for [place] and ischemia P:1. Counselled on abortive maneuvers once prodromal sxs have been experienced, instructions to remain well-hydrated 2. Studies reviewed with patient and family 3. ECG pattern not consistent with Brugada syndrome 4. Patient may be d/barb from CV-standpoint
[2019-07-03] MEDS: LACTULOSE 20 GM/30 ML UDC (FOR ORAL USE ONLY) PO SCH (09:49)
== END 2019-07-03 09:51 | disposition home or self-care (01) ==
LOC: JER 12:08 → JERBED 14:00 → J4W 07-02 02:19
PROVIDERS: ADMIT Hospitalist; ATTEND Internal Medicine
PROC: 3E0337Z Introduction of Electrolytic and Water Balance Substance into Peripheral Vein, Percutaneous Approach (ICD-10-PCS; principal; 2019-07-01)
PROC: 3E013GC Introduction of Other Therapeutic Substance into Subcutaneous Tissue, Percutaneous Approach (ICD-10-PCS; 2019-07-01)
DX: R55 Syncope and collapse (principal); I49.9 Cardiac arrhythmia, unspecified; N32.81 Overactive bladder; K59.09 Other constipation; R07.9 Chest pain, unspecified; I65.22 Occlusion and stenosis of left carotid artery
CPT/HCPCS: 36415; 70496-TC; 70498-TC; 71045-TC-FY; 78452-TC; 80048; 80053; 81003; 83735; 84100; 84436; 84439; 84443; 84481; 84484; 85025; 85027; 85610; 87086; 93005; 93010; 93017; 93306-TC; 93880-TC; 99285-25; A9502; G0378; J1644; J7030